=== PATIENT | male | born 1980 | race Caucasian/White ===

== ENCOUNTER 2024-05-07 06:15 | Day surgery (SDC) | payer BC, SELFPAY ==
[2024-05-07] VITALS (7 sets, daily range): BP systolic 132–151; BP diastolic 93–97; BMI 12.8
[2024-05-07] MEDS: CELEBREX 200 MG PO (14:43)
[2024-05-07] MEDS: TYLENOL 1000 MG PO (14:43)
== END 2024-05-07 18:00 | disposition home or self-care (01) ==
LOC: SDS 06:15
PROVIDERS: ATTENDING PHYSICIAN Specialist
DX: S83.282A Other tear of lateral meniscus, current injury, left knee, initial encounter (principal); X58.XXXA Exposure to other specified factors, initial encounter; M94.262 Chondromalacia, left knee; Z98.890 Other specified postprocedural states
CPT/HCPCS: 29881